=== PATIENT | female | born 1960 | race Caucasian/White ===

== ENCOUNTER → 2024-04-08 10:45 | Outpatient (REF) | payer OTHER, SELFPAY | LOC: WDC 10:45 | PROVIDERS: ATTENDING PHYSICIAN Obstetrics & Gynecology Gynecology | DX: Z12.31 Encounter for screening mammogram for malignant neoplasm of breast (principal) | CPT/HCPCS: 77063; 77067 ==

== ENCOUNTER 2024-06-20 14:51 | Emergency (ER) | payer OTHER, SELFPAY ==
[2024-06-20 14:53] VITALS: BP 147/77
--- NOTE | 2024-06-20 15:46 | ED.MUSCINJ ---
HPI-Injury
General
Chief Complaint: Musculo-Skeletal Complaint
Source: patient and spouse
Exam Limitations: none
Time Seen by Provider: 06/20/24 15:41
Nursing documentation reviewed up to this point in time: agreed with
History of Present Illness-Injury
Is this injury a work related problem?: No
Is pt an associate of [facility]/[place]?: No
Initial Injury comments:
64-year-old female presents emergency department due to fall down 2 steps onto her left wrist. She denies hitting her head. She states she does not take Eliquis.
Past History
Past History
ED Past Medical History: Arrthythmia, Cancer (Breast cancer 2008) and Other (Mitral valve prolapse)
ED Past Surgical History: Orthopedic
Social History
Tobacco: Non-smoker
Alcohol: Occasional
Personal:
Family History
Family History: CAD
Review of Systems
Review of Systems
Allergies reviewed?: Yes
All Other Systems: Not applicable
Constitutional: Reports no symptoms
EENT: Reports no symptoms
Respiratory: Reports no symptoms
Cardiac: Reports no symptoms
ABD/GI: Reports no symptoms
: Reports no symptoms
Musculoskeletal: Reports joint pain and joint swelling
Skin: Reports no symptoms
Neurological: Reports no symptoms
Endocrine: Reports no symptoms
Hematologic/Lymphatic: Reports no symptoms
Psychiatric: Reports no symptoms
Phy Exam
Physical Exam
Physical Exam:
Physical Exam
General: no apparent distress, not acutely ill
Neck: supple. no meningeal signs. normal posterior pharynx, no C-spine tenderness
Heart: equal radial pulses.
HEENT: Pupils equal round reactive to light, EOMI
Lungs: no acute respiratory distress.
Abdomen: Soft, nontender
Neuro: alert and oriented. no focal neurological deficits cranial nerves II through XII intact
Skin: no rash
Psychiatric: well kept. interactive and cooperative
Extremities: Swelling and deformity left wrist. No calf tenderness. negative homans. good distal pulses
Injury Course
Orders/Labs/Results
Orders:
Orders
06/20/24 14:56
Wrist, Left 3 Views CR [CR Wrist - Left Min 3 Views] Urgent
Comment:
Reason For Exam: deformity
06/20/24 16:49
Splints/Slings/Crut- Treatment ONCE
Location: Left
Type of Splint: Other
Comment: sugar tong
Ketorolac [Toradol] 15 mg IM NOW STA
Procedures
Splint Check
Splint checked by provider?: Yes
Circulation/Movement/Sensation post splint application: brisk cap refill, full sensation, pulses intact and decreased ROM
MDM/Problems Addressed
Differential Diagnosis Includes:
Wrist dislocation, wrist fracture
MDM/Problems Addressed:
64-year-old female with left distal radius and ulna fracture, comminuted. Discussed with Dr. Nur, whom she has seen for prior surgery in the past. Who recommends splint and will see in office tomorrow.
Chronic conditions affecting care: Arrhythmia
Acute Exacerbation and/or Progression of Chronic Illness: Arrhythmia
*Radiology
Radiology exam reviewed: preliminary read by ED provider (left wrist xray: comminuted distal radius and ulna fracture)
*Pulse Oximetry
Patient hypoxic: no
*EKG
Interpreted by ED Provider?: NA
*After School Tutor Interpretation
Rate: After School Tutor- N/A
*Critical Care Note
Total Time (30-74mins, 75-104mins- exclusive of procedures): Not Applicable
Patient Management
Social determinants of health affecting care: Living situation
Discussion with other providers: [employer] (Orthopedics, Dr. Nur)
Escalation/DeEscalation of care consider admission/obs:
Admit not indicated
ED Attending Note
-
Portions of this chart may have been created with voice recognition software.� Occasional wrong word or��sound alike� substitutions may have occurred due to the inherent limitations of voice recognition software.
Discharge Plan
Departure
Patient Disposition: Home (Routine Discharge)
Date of Disposition: 06/20/24
Time of Disposition: 17:21
Patient with high blood pressure during this ER visit?: Yes
Condition: Good
Discharge Problem:
Closed fracture of distal end of left radius with ulna
Instructions: Wrist Fracture (DC), BLOOD PRESSURE
Prescriptions:
New
hydrocodone-acetaminophen 5-325 mg tablet
1 tab PO Q4H PRN (Reason: Pain) Qty: 14 0RF
No Action
metoprolol tartrate 25 MG tablet
25 mg PO BID
kc-[id number]-pqtbu-calcium carb-K1 [Women's 50 Plus Daily Formula] 1 EACH tablet
1 ea PO DAILY
apixaban [Eliquis] 5 MG tablet
5 mg PO BID Qty: 0 0RF
Referrals:
Tian Nur MD [Active] - Tomorrow
Dee Hernandez MD [Family Provider] -
Interventions
Interventions:
*Risk Screen - Suicide Last Done: 06/20/24 14:53
*General Assessment Last Done: 06/20/24 14:53
*Neglect/Abuse Screening Last Done: 06/20/24 14:53
*ED COVID-19 Vaccine History Last Done: 06/20/24 14:53
Discharge Date and Time
Print Language: BOLIVIAN
[2024-06-20] MEDS: TORADOL 15 MG IM (17:27)
== END 2024-06-20 17:49 | disposition home or self-care (01) ==
LOC: EMR 14:51
PROVIDERS: EMERGENCY PHYSICIAN Emergency Medicine; FAMILY PHYSICIAN Family Medicine
DX: S52.572A Other intraarticular fracture of lower end of left radius, initial encounter for closed fracture (principal); S52.612A Displaced fracture of left ulna styloid process, initial encounter for closed fracture; W10.9XXA Fall (on) (from) unspecified stairs and steps, initial encounter; R03.0 Elevated blood-pressure reading, without diagnosis of hypertension; Z79.01 Long term (current) use of anticoagulants
CPT/HCPCS: 99284; 96372; 29125; 73110

== ENCOUNTER → 2024-08-19 12:38 | Outpatient (REF) | payer OTHER, SELFPAY | LOC: RCS 12:38 | PROVIDERS: ATTENDING PHYSICIAN Internal Medicine Cardiovascular Disease; FAMILY PHYSICIAN Family Medicine | DX: I48.0 Paroxysmal atrial fibrillation (principal); I45.10 Unspecified right bundle-branch block; I34.0 Nonrheumatic mitral (valve) insufficiency | CPT/HCPCS: 93306 ==